=== PATIENT | male | born 1990 | race African-American/Black ===

== ENCOUNTER 2022-10-03 12:33 | Emergency (ER) | payer OTHER, SELFPAY ==
[2022-10-03 12:38] VITALS: BP 133/117; PULSE 117; RESP 18; TEMP 37.2; O2SAT 98
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
[2022-10-03 13:01] VITALS: RESP 30
[2022-10-03] MEDS: diphenhydrAMINE Elixir 25 MG/10 ML CUP PO (13:05)
[2022-10-03 14:05] VITALS: BP 117/71; PULSE 76; RESP 20; O2SAT 100
== END 2022-10-03 14:09 | disposition home or self-care (01) ==
LOC: ER 14:16
PROVIDERS: Emergency Provider Emergency Medicine
DX: Z77.098 Contact with and (suspected) exposure to other hazardous, chiefly nonmedicinal, chemicals (principal); R20.2 Paresthesia of skin; R03.0 Elevated blood-pressure reading, without diagnosis of hypertension
CPT/HCPCS: 99283; 99284